=== PATIENT | female | born 1990 | race Caucasian/White ===

== ENCOUNTER → 2017-05-10 | Outpatient (CLI) | payer OTHER ==
[~2017-05-10] MED LIST: ALPR0.254 PO
[2017-05-10 09:30] LABS: MICROSCOPIC AUTO
[2017-05-10 09:30] LABS: BASOPHILS # (AUTO) 0.04 x10^3/uL (0-0.1); BASOPHILS % (AUTO) 1 % (0-1); EOSINOPHILS # (AUTO) 0.11 x10^3/uL (0-0.4); EOSINOPHILS % (AUTO) 2 % (1-7); LYMPHOCYTES # (AUTO) 1.64 x10^3/uL (1-3.4); LYMPHOCYTES % (AUTO) 26 % (22-44); MD NO; MEAN CORPUSCULAR HEMOGLOBIN 31.5 pg (27.0-34.8); MEAN CORPUSCULAR HGB CONC 33.9 g/dL (32.4-35.8); MEAN CORPUSCULAR VOLUME 93.1 fL (80-100); MEAN PLATELET VOLUME 9.8 fL (7.4-10.4); MONOCYTES # (AUTO) 0.31 x10^3/uL (0.2-0.8); MONOCYTES % (AUTO) 5 % (2-9); NEUTROPHILS # (AUTO) 4.15 x10^3/uL (1.8-6.8); NEUTROPHILS % (AUTO) 66 % (42-75); PLATELET COUNT 209 x10^3/uL (130-400); RED BLOOD COUNT 4.71 x10^6/uL (3.82-5.3); RED CELL DISTRIBUTION WIDTH 12.9 % (9.6-15.2)
[2017-05-10 09:37] LABS: CULTURE INDICATED? NO
== END | disposition home or self-care (01) ==
LOC: STAR 08:36
PROVIDERS: ATTEND Obstetrics & Gynecology
DX: Z01.818 Encounter for other preprocedural examination (principal); R10.2 Pelvic and perineal pain
CPT/HCPCS: 36415; 81001; 81025; 85025

== ENCOUNTER 2017-05-18 08:00 | Day surgery (SDC) | payer OTHER ==
[~2017-05-18] VITALS: Ht 172.7 cm; Wt 80.4 kg
[~2017-05-18 08:00] MED LIST changes: +SCOPOLAMINE PATCH, 1.5MG PATCH.TD72 TD STA
[2017-05-18] MEDS ORDERED: LACTATED RINGERS 1,000 ML IV SCH (08:48)
[2017-05-18] MEDS ORDERED: OXYcodone ORAL.CONC 20 MG/ML PO ONE (09:00)
[2017-05-18] MEDS ORDERED: GABAPENTIN 300 MG CAPSULE PO SCH (09:00)
[2017-05-18] MEDS ORDERED: ACETAMINOPHEN 500 MG TABLET PO ONE (09:00)
[2017-05-18] MEDS ORDERED: BUPIVACAINE/PF 0.25% ONE (09:25)
[2017-05-18] MEDS ORDERED: SILVER NITRATE STICK TP ONE (09:25)
[2017-05-18] MEDS ORDERED: EPINEPHRINE 1 MG/ML, 1ML ONE (09:25)
[2017-05-18 09:28] LABS: HCG UR SG 1.023 (1.003-1.030)
[2017-05-18] MEDS ORDERED: FENTANYL PF 100 MCG/2ML ONE ×2 (09:28→10:30)
[2017-05-18] MEDS ORDERED: MIDAZOLAM 1 MG/ML, 2ML ONE (09:28)
[2017-05-18] MEDS ORDERED: OxyconTIN ER 20 MG TAB.ER PO SCH (09:30)
[2017-05-18] MEDS ORDERED: GLYCOPYRROLATE 0.2MG/1ML, 5ML ONE (09:41)
[2017-05-18] MEDS ORDERED: NEOSTIGMINE 1 MG/ML, 10ML ONE (09:41)
[2017-05-18] MEDS ORDERED: CEFAZOLIN 1,000 MG ONE ×2 (09:48)
[2017-05-18] MEDS ORDERED: PROPOFOL 10 MG/ML, 20ML ONE (09:48)
[2017-05-18] MEDS ORDERED: ROCURONIUM 10 MG/ML,10ML ONE (09:48)
[2017-05-18] MEDS ORDERED: DEXAMETHASONE 4 MG/ML, 1ML ONE (09:48)
[2017-05-18] MEDS ORDERED: ONDANSETRON 2MG/ML, 2ML ONE (09:49)
[2017-05-18] MEDS ORDERED: LABETALOL 5MG/ML, 20ML IV PRN (10:00)
[2017-05-18] MEDS ORDERED: ALBUTEROL SULFATE 2.5 MG/3 ML NPPB PRN (10:00)
[2017-05-18] MEDS ORDERED: hydrALAzine 20 MG/ML, 1ML IV PRN (10:00)
[2017-05-18] MEDS ORDERED: EPHEDRINE 50 MG/ML, 1ML IVPush PRN (10:00)
[2017-05-18] MEDS ORDERED: PROMETHAZINE 25 MG/ML, 1ML IV PRN (10:00)
[2017-05-18] MEDS ORDERED: DIAZEPAM 5 MG/ML, 2ML IVPush PRN (10:00)
[2017-05-18] MEDS ORDERED: ONDANSETRON 2MG/ML, 2ML IVPush PRN (10:00)
[2017-05-18] MEDS ORDERED: METOPROLOL 1 MG/ML, 5ML IV PRN (10:00)
[2017-05-18] MEDS ORDERED: MEPERIDINE/PF 25MG/0.5ML IVPush PRN (10:00)
[2017-05-18] MEDS ORDERED: OXYcodone 5 MG/5 ML ORAL.SOL UDC PO PRN (10:00)
[2017-05-18] MEDS ORDERED: MEPERIDINE/PF 50 MG/ML ONE (10:29)
[2017-05-18] MEDS ORDERED: OXYcodone 5 MG/5 ML ORAL.SOL UDC ONE (10:30)
[2017-05-18] MEDS: FENTANYL PF 100 MCG/2ML IV PRN ×2 (10:35→10:40)
== END 2017-05-18 13:00 | disposition home or self-care (01) ==
LOC: OUT 08:00
PROVIDERS: ATTEND Obstetrics & Gynecology
DX: N80.0 Endometriosis of uterus (principal); Z88.8 Allergy status to other drugs, medicaments and biological substances; Z98.890 Other specified postprocedural states
CPT/HCPCS: 58662; 81025; J0171; J0690; J1100; J2175; J2250; J2405; J2704; J2710; J3010; J3490; J7120

== ENCOUNTER 2017-07-12 18:07 | Emergency (ER) | payer OTHER ==
[~2017-07-12] VITALS: Ht 172.7 cm; Wt 81.4 kg
[~2017-07-12 18:07] MED LIST changes: -SCOPOLAMINE PATCH, 1.5MG PATCH.TD72 TD STA
[2017-07-12 19:00] LABS: BASOPHILS # (AUTO) 0.06 x10^3/uL (0-0.1); BASOPHILS % (AUTO) 1 % (0-1); EOSINOPHILS # (AUTO) 0.11 x10^3/uL (0-0.4); EOSINOPHILS % (AUTO) 1 % (1-7); LYMPHOCYTES # (AUTO) 2.43 x10^3/uL (1-3.4); LYMPHOCYTES % (AUTO) 32 % (22-44); MD NO; MEAN CORPUSCULAR HEMOGLOBIN 31.6 pg (27.0-34.8); MEAN CORPUSCULAR HGB CONC 33.7 g/dL (32.4-35.8); MEAN CORPUSCULAR VOLUME 93.7 fL (80-100); MEAN PLATELET VOLUME 9.8 fL (7.4-10.4); MONOCYTES # (AUTO) 0.45 x10^3/uL (0.2-0.8); MONOCYTES % (AUTO) 6 % (2-9); NEUTROPHILS # (AUTO) 4.55 x10^3/uL (1.8-6.8); NEUTROPHILS % (AUTO) 60 % (42-75); PLATELET COUNT 253 x10^3/uL (130-400); RED BLOOD COUNT 4.58 x10^6/uL (3.82-5.3); RED CELL DISTRIBUTION WIDTH 13.2 % (9.6-15.2)
[2017-07-12 19:01] LABS: MICROSCOPIC AUTO
[2017-07-12 19:02] LABS: CULTURE INDICATED? YES
[2017-07-12 19:10] LABS: ANION GAP 6 mmol/L (5-15); CALCIUM 9.7 mg/dL (8.5-10.1); CHLORIDE 106 mmol/L (98-107); CREATININE 0.83 mg/dL (0.55-1.02)
[2017-07-12 19:41] LABS: BILIRUBIN, DIRECT 0.1 mg/dL (0.1-0.2); BILIRUBIN,INDIRECT 0.5 mg/dL (0.0-2.0); BILIRUBIN,TOTAL 0.6 mg/dL (0.2-1.0); TOTAL PROTEIN 7.4 g/dL (6.4-8.2)
[2017-07-12 20:44] VITALS: BP 99/55
== END 2017-07-12 20:46 | disposition home or self-care (01) ==
LOC: ED 20:30
DX: R10.33 Periumbilical pain (principal); R10.32 Left lower quadrant pain; G89.29 Other chronic pain; M25.551 Pain in right hip
CPT/HCPCS: 36415; 76700; 80048; 80076; 81001; 82040; 83690; 84703; 85025; 87086; 99285